=== PATIENT | male | born 1990 | race Caucasian/White ===

== ENCOUNTER 2025-05-06 16:06 | Emergency (ER) | payer MEDICAID, SELFPAY ==
[2025-05-06 16:16] VITALS: BP 152/94; PULSE 98; RESP 20; TEMP 36.7; O2SAT 98; BMI 19.8
--- NOTE | 2025-05-06 16:22 | PD.EDANIML ---
ED Animal Bite RME/HPI General Chief Complaint: Animal Bite Stated Complaint: Spider bite to the back of neck X 4 days Time Seen by Provider: 05/06/25 16:11 Source: patient Arrival date/time: 05/06/25 16:06 35-year-old male with no known medical history presents to the emergency room with a chief complaint of a spider bite to the back of the neck x 4 days Mode of arrival: ambulatory Limitations: no limitations Related Data Previous Rx's ?Medication ?Instructions ?Recorded DILANTIN 100MG 3 tab PO QDAY ##100 02/17/12 sulfamethoxazole 800 1 tab PO BID #14 tabs 05/06/25 mg-trimethoprim 160 mg tablet (Bactrim DS) Allergies Allergy/AdvReac Type Severity Reaction Status Date / Time NKA* Allergy Uncoded 05/06/25 16:09 Review of Systems Review of Systems Systems Reviewed: All systems reviewed, normal except as documented Constitutional Constitutional: Reports system reviewed and no additional complaints, except as documented, Denies fatigue, Denies fever(s), Denies headache(s) and Denies weakness Eyes Eyes: Reports system reviewed and no additional complaints, except as documented, Denies blurry vision and Denies change in vision ENT Ears, Nose, Mouth, and Throat: Reports system reviewed and no additional complaints, except as documented, Denies otalgia, Denies headache(s), Denies nasal congestion, Denies throat swelling and Denies vertigo Cardiovascular Cardiovascular: Reports system reviewed and no additional complaints, except as documented, Denies chest pain, Denies dyspnea and Denies dyspnea on exertion Respiratory Respiratory: Reports system reviewed and no additional complaints, except as documented, Denies chest congestion, Denies cough, Denies dyspnea, Denies dyspnea on exertion and Denies wheezing Gastrointestinal Gastrointestinal: Reports system reviewed and no additional complaints, except as documented, Denies abdominal pain, Denies cramping, Denies nausea and Denies vomiting Genitourinary Genitourinary: Reports system reviewed and no additional complaints, except as documented, Denies dysuria and Denies hematuria Musculoskeletal Musculoskeletal: Reports system reviewed and no additional complaints, except as documented and Denies back pain Integumentary/Breasts Skin/Breast: Reports system reviewed and no additional complaints, except as documented and Reports wounds Neurologic Neurologic: Reports system reviewed and no additional complaints, except as documented, Denies confusion, Denies headache(s), Denies lack of coordination, Denies vertigo and Denies weakness Psychiatric Psychiatric: Reports system reviewed and no additional complaints, except as documented, Denies anxiety, Denies confusion, Denies depression, Denies paranoia, Denies suicidal ideation and Denies tactile hallucinations Endocrine Endocrine: Reports system reviewed and no additional complaints, except as documented and Denies fatigue Hematologic/Lymphatic Hematologic/Lymphatic: Reports system reviewed and no additional complaints, except as documented and Denies lymphadenopathy Allergic/Immunologic Allergic/Immunologic: Reports system reviewed and no additional complaints, except as documented, Denies throat swelling, Denies urticaria and Denies wheezing Past Medical History Social History SMOKING STATUS: Current every day smoker ED Exam General Limitations: Present no limitations General appearance: Present alert and in no apparent distress Head Head exam: Present atraumatic Expanded Head Exam Head exam physical: Present other (Abscess); Absent laceration or abrasion Head image:  1. 1 cm abscess to the back of the patient's neck. Patient was picking on it and it is draining. Eye Eye exam: Present normal appearance, PERRL and EOMI ENT ENT exam: Present normal exam, normal oropharynx and mucous membranes moist Neck Neck exam: Present normal inspection, full ROM and trachea midline Chest Chest inspection: Present normal inspection and symmetric chest wall rise Respiratory Respiratory exam: Present normal lung sounds bilaterally Cardiovascular Cardiovascular exam: Present regular rate, normal rhythm and normal heart sounds Abdominal Exam Abdominal exam: Present soft and normal bowel sounds Extremities Exam Extremities exam: Present normal inspection and full ROM Back Exam Back exam: Present normal inspection and full ROM Neurological Exam Neurological exam: Present alert, oriented X3 and CN II-XII intact Psychiatric Psychiatric exam: Present normal affect and normal mood Skin Skin exam: Present warm, dry, intact and normal color Course Quality Measures none Vital Signs Vital signs: Vital Signs Temperature 98.0 F 05/06/25 16:16 Pulse Rate 98 05/06/25 16:16 Respiratory Rate 20 05/06/25 16:16 Blood Pressure 152/94 H 05/06/25 16:16 Pulse Oximetry (%) 98 05/06/25 16:16 Oxygen Delivery Method Room Air 05/06/25 16:16 Animal Bite MDM Narrative MDM Narrative:: 35-year-old male with no known medical history presents to the emergency room with a chief complaint of a spider bite to the back of the neck x 4 days Patient is hemodynamically stable and in no apparent distress Physical examination shows a 1 cm abscess to the back of the patient's neck. Patient states this occurred from a spider bite 4 days ago. Patient has been picking at it and is currently draining. The site is erythemic and mildly swollen. Antibiotics were given to the patient. Patient was given strict return precautions to return to the emergency room for any evidence of worsening signs or symptoms Patient was discharged and educated to follow-up with primary care provider in the next 24 to 48 hours and return to the emergency room for any evidence of worsening signs or symptoms Patient data External records reviewed:: [facility] previous records Clinical information provided by:: patient Social determinants that could affect healthcare access:: none Patient has the following chronic illnesses:: No chronic illness How is presenting disease/condition affected by chronic disease/condition?: no chronic disease Evaluation data The following diagnostics were reviewed and interpreted by me:: lab results and radiology exam(s) Lab and/or radiology exams considered but not ordered:: Labs and radiology exams considered in order Interpretation Summary: N/A Medications / Prescriptions Medications or Prescriptions considered but not ordered:: Medication given Medication administrations:: Rx given Consultations Consultation(s) initiated? (list below): No Diagnosis Differential diagnosis animal bite: bite by animal and other (Cellulitis/abscess) Most likely diagnosis given after review of the tests above:: Cellulitis Admission Indicated Admission indicated?: not indicated Admission Request Was there a request for admission?: No Disposition Plan Disposition Plan: Discharge Discharge Attestation Discharge Attestation: The patient and all family members were given an opportunity to ask questions and understood the discharge instructions. Discharge instructions specifically effects, indications for sooner follow up or return to the emergency department, and the expected course of current diagnosis. Patient condition: Stable Discharge Plan Plan Patient Disposition: HOME (Self Care) Discharge Disposition comment: Stable Prescriptions/Referrals Prescriptions/Med Rec: New sulfamethoxazole-trimethoprim [Bactrim DS] 800-160 mg tablet 1 tab PO BID Qty: 14 0RF No Action DILANTIN 100MG 3 tab PO QDAY Qty: 100 0RF Problem List Clinical Impression: Insect bite, Cellulitis and abscess of neck Patient/Caregiver Discharge Instructions Education Materials: ED Abscess Antibiotic ... Additional Instructions: Please follow-up with your primary care provider in the next 24 to 48 hours Antibiotics are sent to your pharmacy please pick them up and take them as indicated For any evidence of worsening signs or symptoms return to the emergency room immediately Print Language: Czech Stand Alone Forms: Pam Award Info., Patient Portal Info Letter PA/PROJ ENGINEER Supervising Physician KASI/RAI Supervising Physician: Dr. Andrea JARRELL Attestation MD Attestation The patient was seen by the midlevel practitioner. I, the co-signing physician, was present during the entire ER visit. While I did not physically examine the patient, I was available for consultation as needed. I agree with the plan and documentation.
== END 2025-05-06 17:00 | disposition home or self-care (01) ==
LOC: SERX 17:00
PROVIDERS: Emergency Provider Family Medicine; PCP Family Medicine
DX: T63.301A Toxic effect of unspecified spider venom, accidental (unintentional), initial encounter (principal); L03.221 Cellulitis of neck; L02.11 Cutaneous abscess of neck; F17.210 Nicotine dependence, cigarettes, uncomplicated
CPT/HCPCS: 99282

== ENCOUNTER 2025-05-09 13:38 | Emergency (ER) | payer MEDICAID, SELFPAY ==
[2025-05-09 13:51] VITALS: BP 138/84; PULSE 90; RESP 18; TEMP 36.7; O2SAT 99; BMI 20.2
--- NOTE | 2025-05-09 14:04 | PD.EDSKIN ---
ED Skin Abcess FB-RME/HPI General Chief complaint: Skin/Abscess/Foreign Body Stated complaint: Abscess X 5 days to the back of his neck Time Seen by Provider: 05/09/25 13:50 Arrival date/time: 05/09/25 13:38 RME / HPI RME / HPI narrative: 35-year-old male patient with no significant past medical history except for seizure disorder, came in for evaluation regarding worsening swelling and redness to the back neck.'s been ongoing for the last 5 days. Patient came here and was started on Bactrim for possible clindamycin. According to the patient is getting worse over time. Wanted to be I&D. No fever noted Related Data Previous Rx's ?Medication ?Instructions ?Recorded DILANTIN 100MG 3 tab PO QDAY ##100 02/17/12 sulfamethoxazole 800 1 tab PO BID #14 tabs 05/06/25 mg-trimethoprim 160 mg tablet (Bactrim DS) clindamycin HCl 300 mg capsule 300 mg PO TID #20 caps 05/09/25 ibuprofen 800 mg tablet 800 mg PO TID PRN pain #30 tabs 05/09/25 Allergies Allergy/AdvReac Type Severity Reaction Status Date / Time NKA* Allergy Uncoded 05/09/25 13:42 Review of Systems Review of Systems Narrative Review of Systems: Review of system reviewed and within normal limits except mentioned in HPI ED Exam Narrative Physical exam: VITAL SIGNS: Reviewed. GENERAL APPEARANCE: Alert and interactive, follows commands, no acute distress, HEAD AND FACE: Non-traumatic. ENT: PERRL, pink conjunctivitis, eyelid no trauma, Mucous membrane moist. NECK: Supple, +2x2 cm redness swelling, fluctuant, posterior neck with tenderness, no nuchal rigidity. CHEST: No tenderness, no crepitus, no paradoxical movement, no retractions. LUNGS: Clear, well ventilated, symmetric, no rales, no wheezing, no ronchi, no stridor, good breath sounds bilaterally. HEART: Regular rate, regular rhythm, no murmur, no gallops. ABDOMEN: Soft, positive bowel sounds, nondistended, no guarding, nontender, no rebound, no masses, RECTAL: Deferred. GENITAL: Deferred. NEUROLOGICAL: Gross motor function intact sensory function intact, Appropriate for age. MUSCULOSKELETAL: low back nontender, full range of motion. EXTREMITIES: Nontender, full range of motion. SKIN: Color pink, dry, no rash, no lacerations, no abrasions, no contusions. LYMPHATICS: Deferred. Course Quality Measures none Orders Category Date Time Status Clindamycin [Cleocin] Med 05/09/25 14:03 Discontinued 300 mg PO X1 ONE Ketorolac Inj [Toradol Inj] Med 05/09/25 14:03 Discontinued 30 mg IM X1 ONE Lidocaine 1% 20 ml [Xylocaine 1% 20 ML] Med 05/09/25 14:03 Discontinued 10 ml INFL X1 ONE Vital Signs Vital signs: Vital Signs Temperature 98.1 F 05/09/25 13:51 Pulse Rate 90 05/09/25 13:51 Respiratory Rate 18 05/09/25 13:51 Blood Pressure 138/84 H 05/09/25 13:51 Pulse Oximetry (%) 99 05/09/25 13:51 Oxygen Delivery Method Room Air 05/09/25 13:51 PROCEDURES: Abscess I/D Site: other (Posterior neck abscess) Sedation/analgesia: other Local Anesthetic: lidocaine 1% Amount of anesthesia used (mL): 5 Technique: incised with #11 blade Amount of fluid expressed (mL): 2 Packing used?: none and plain Skin / Abscess / Foreign Body MDM Narrative MDM Narrative:: 35-year-old male patient with significant medical history except for seizure disorder, came in for evaluation regarding worsening swelling and redness to the back neck.'s been ongoing for the last 5 days. Patient came here and was started on Bactrim for possible posterior neck abscess. According to the patient is getting worse over time. Wanted to be I&D. No fever noted Incision and drainage was done by me see procedure notes. Patient was given clindamycin. Patient tolerated the procedure well. Patient data External records reviewed:: Other (specify) Clinical information provided by:: none Social determinants that could affect healthcare access:: none Patient has the following chronic illnesses:: None How is presenting disease/condition affected by chronic disease/condition?: no chronic disease Evaluation data The following diagnostics were reviewed and interpreted by me:: other (specify) Lab and/or radiology exams considered but not ordered:: None Interpretation Summary: None Medications / Prescriptions Medications or Prescriptions considered but not ordered:: None Medication administrations:: Medication Administration History Discontinued Medications Clindamycin HCl (Clindamycin 150 Mg Capsule) 300 mg PO X1 ONE Stop: 05/09/25 14:04 Last Admin: 05/09/25 14:17 Dose: 300 mg Documented By: Ketorolac Tromethamine (Ketorolac Inj 60 Mg/2 Ml Vial) 30 mg IM X1 ONE Stop: 05/09/25 14:04 Last Admin: 05/09/25 14:18 Dose: 30 mg Documented By: Lidocaine HCl (Lidocaine Hcl 1% 20 Ml Vial) 10 ml INFL X1 ONE Stop: 05/09/25 14:04 Last Admin: 05/09/25 14:17 Dose: 10 ml Documented By: Clindamycin Consultations Consultation(s) initiated? (list below): No Diagnosis Skin/Abscess Differential Diagnosis: abscess of skin or subcutaneous tissue, cellulitis and impetigo Most likely diagnosis given after review of the tests above:: Abscess posterior neck Admission Indicated Admission indicated?: not indicated Admission Request Was there a request for admission?: No Disposition Plan Disposition Plan: Discharge Discharge Attestation Discharge Attestation: The patient and all family members were given an opportunity to ask questions and understood the discharge instructions. Discharge instructions specifically effects, indications for sooner follow up or return to the emergency department, and the expected course of current diagnosis. Patient condition: Stable Discharge Plan Plan Patient Disposition: HOME (Self Care) Discharge Disposition comment: stable Prescriptions/Referrals Prescriptions/Med Rec: New clindamycin HCl 300 mg capsule 300 mg PO TID Qty: 20 0RF ibuprofen 800 mg tablet 800 mg PO TID PRN (Reason: pain) Qty: 30 0RF No Action DILANTIN 100MG 3 tab PO QDAY Qty: 100 0RF sulfamethoxazole-trimethoprim [Bactrim DS] 800-160 mg tablet 1 tab PO BID Qty: 14 0RF Referrals: No Primary/Family,Physician [Primary Care Provider] - In 1 week Problem List Clinical Impression: Abscess Patient/Caregiver Discharge Instructions Discharge Activity: activity as tolerated Education Materials: ED Abscess, Incision And Drainage Additional Instructions: Thank you for the opportunity for serving you today. You are stable for discharged . You are advised to: Follow-up with your PCP in 1 to 2 days Return to ED for worsening of symptoms Increase oral fluids Take medication as prescribed Removal of wound packing in 2 days Daily dressing as instructed Print Language: Danish Stand Alone Forms: Pam Award Info., Patient Portal Info Letter PA/WEAVING TEACHER Supervising Physician PA/WEAVING TEACHER Supervising Physician: MD CHRYSTAL Mendez Attestation MD Attestation The patient was seen by the midlevel practitioner. I, the co-signing physician, was present during the entire ER visit. While I did not physically examine the patient, I was available for consultation as needed. I agree with the plan and documentation.
[2025-05-09] MEDS: CLINDAMYCIN 150 MG CAPSULE 300 MG PO (14:17)
[2025-05-09] MEDS: LIDOCAINE HCL 1% 20 ML VIAL 10 ML INFL (14:17)
[2025-05-09] MEDS: KETOROLAC INJ 60 MG/2 ML VIAL 30 MG IM (14:18)
== END 2025-05-09 15:42 | disposition home or self-care (01) ==
PROVIDERS: Emergency Provider Family Medicine
DX: L02.11 Cutaneous abscess of neck (principal)
CPT/HCPCS: 10060; 96372; 99283; J1885; J3490; A9270